=== PATIENT | male | born 1955 | race Caucasian/White ===

== ENCOUNTER 2018-12-13 15:15 | Outpatient (REF) | payer MEDICARE, BC, SELFPAY ==
[2018-12-13 21:54] LABS: Anion Gap 10.7 mmol/L (3-11); BUN 15 mg/dL (7-18); CO2 27.3 mmol/L (21.0-32.0); CREATININE 0.81 mg/dL (0.70-1.30); Calcium 9.1 mg/dL (8.5-10.1); Chloride 103 mmol/L (98-107); Glucose 128 mg/dL (70-100); Sodium 141 mmol/L (136-145)
== END 2018-12-13 15:35 ==
LOC: NCHCN 15:15
PROVIDERS: PCP Internal Medicine; Visit Provider Internal Medicine
DX: E11.9 Type 2 diabetes mellitus without complications (principal); E66.01 Morbid (severe) obesity due to excess calories
CPT/HCPCS: 80048

== ENCOUNTER 2019-03-15 10:15 | Outpatient (REF) | payer MEDICARE, BC, SELFPAY ==
[2019-03-15 22:35] LABS: COMMENT (LAB VIEW ONLY) 174.16 mg/dL; Microalb ug/mg Crea 4.3 ug/mg Cr
== END 2019-03-15 10:35 ==
LOC: NCHCN 10:15
PROVIDERS: PCP Internal Medicine; Visit Provider Internal Medicine
DX: E11.9 Type 2 diabetes mellitus without complications (principal)
CPT/HCPCS: 82043; 82570

== ENCOUNTER 2019-04-12 10:41 | Outpatient (REF) | payer MEDICARE, BC, SELFPAY ==
--- NOTE | 2019-04-12 09:20 | SKI_PTH ---
PATIENT: Clemente Everett LOC: [facility] U#:[id number] AGE/SX: 64/M ROOM: RE04/12/[address]: Erin Valladares : 1955 BED: DIS: 04/12/2019 SPEC #: [id number] RECD: 04/13/19 12:39 STATUS: FADIA REQ #: [id number] BLAYNE: 04/12/19 09:[address]: Erin Valladares DEPT: Surgical Specimen RECD BY: Radha Petersen ENTERED: 04/13/19 12:40 SP TYPE: MARCELINA OTHR DR: Zeus Mederos Tissues: 1 - SKIN BIOPSY(SHAVE/PUNCH) Procedures: SKIN LEVEL 4 Comments: [id number]
== END 2019-04-12 11:01 ==
LOC: NCHCN 10:41
PROVIDERS: PCP Internal Medicine; Visit Provider Internal Medicine
DX: D04.61 Carcinoma in situ of skin of right upper limb, including shoulder (principal)
CPT/HCPCS: 88305

== ENCOUNTER 2019-12-03 10:01 | Outpatient (REF) | payer MEDICARE, BC, SELFPAY ==
[2019-12-03 21:27] LABS: ALT 54 U/L (16-63); AST 32 U/L (15-37); Albumin 4.5 g/dL (3.4-5.0); Alkaline Phosphatase 73 U/L (46-116); Anion Gap 11.9 mmol/L (3-11); BUN 20 mg/dL (7-18); Bilirubin, Total 0.7 mg/dL (0.2-1.0); CO2 26.1 mmol/L (21.0-32.0); CREATININE 0.87 mg/dL (0.70-1.30); Calcium 8.7 mg/dL (8.5-10.1); Chloride 101 mmol/L (98-107); Glucose 107 mg/dL (74-106); Potassium 4.5 mmol/L (3.5-5.1); Sodium 139 mmol/L (136-145); Total Protein 7.8 g/dL (6.4-8.2)
[2019-12-03 21:40] LABS: Hemoglobin A1C 7.1 % (3.8-5.6)
[2019-12-03 21:41] LABS: Calculated LDL 93 mg/dL (<100); Cholesterol 176 mg/dL (<200); HDL Cholesterol 54 mg/dL (40-60); Triglyceride 147 mg/dL (<150)
[2019-12-05 08:46] LABS: PSA, Screening 0.3 ng/mL (0.0-4.5)
== END 2019-12-03 10:21 ==
LOC: NCHCN 10:01
PROVIDERS: PCP Internal Medicine; Visit Provider Internal Medicine
DX: E11.9 Type 2 diabetes mellitus without complications (principal); I10 Essential (primary) hypertension; M47.816 Spondylosis without myelopathy or radiculopathy, lumbar region; Z12.5 Encounter for screening for malignant neoplasm of prostate
CPT/HCPCS: 80053; 80061; 84153; 83036

== ENCOUNTER 2020-06-23 14:33 | Outpatient (REF) | payer MEDICARE, BC, SELFPAY ==
[2020-06-23 23:39] LABS: COMMENT (LAB VIEW ONLY) 34.04 mg/dL
== END 2020-06-23 14:53 ==
LOC: NCHCN 14:33
PROVIDERS: PCP Internal Medicine; Visit Provider Internal Medicine
DX: E11.9 Type 2 diabetes mellitus without complications (principal)
CPT/HCPCS: 82043; 82570

== ENCOUNTER 2020-12-22 09:49 | Outpatient (REF) | payer MEDICARE, BC, SELFPAY ==
[2020-12-22 13:30] LABS: HCT 41.6 % (40.0-50.0); HGB 14.6 g/dL (13.5-17.5); MCH 32.8 pg (27.0-33.0); MCHC 35.1 % (32.0-36.0); MCV 93.5 fL (80-95); MPV 9.6 fL (8.0-11.0); Platelet Count 187 10^3/uL (130-400); RBC 4.45 10^6/uL (4.36-5.78); RDW 12.9 % (11.8-14.1); RDW-SD 44.2 fL; WBC 3.95 10^3/uL (4.4-10.8)
[2020-12-22 14:20] LABS: ALT 71 U/L (16-63); AST 41 U/L (15-37); Albumin 4.5 g/dL (3.4-5.0); Alkaline Phosphatase 75 U/L (46-116); Anion Gap 10.7 mmol/L (3-11); BUN 13 mg/dL (7-18); Bilirubin, Total 0.5 mg/dL (0.2-1.0); CO2 25.3 mmol/L (21.0-32.0); CREATININE 0.8 mg/dL (0.70-1.30); Calcium 8.7 mg/dL (8.5-10.1); Calculated LDL 70 mg/dL (<100); Chloride 104 mmol/L (98-107); Cholesterol 147 mg/dL (<200); Glucose 129 mg/dL (74-106); HDL Cholesterol 48 mg/dL (40-60); Potassium 4.3 mmol/L (3.5-5.1); Sodium 140 mmol/L (136-145); Total Protein 7.7 g/dL (6.4-8.2); Triglyceride 146 mg/dL (<150)
== END 2020-12-22 09:50 | disposition home or self-care (01) ==
LOC: NCHCN 09:49
PROVIDERS: PCP Internal Medicine; Visit Provider Internal Medicine
DX: I10 Essential (primary) hypertension (principal); E11.9 Type 2 diabetes mellitus without complications; E78.5 Hyperlipidemia, unspecified; G47.33 Obstructive sleep apnea (adult) (pediatric)
CPT/HCPCS: 80053; 80061; 85027

== ENCOUNTER 2021-06-23 09:36 | Outpatient (REF) | payer MEDICARE, BC, SELFPAY ==
[2021-06-23 16:24] LABS: Hemoglobin A1C 6.6 % (<5.7)
[2021-06-23 16:28] LABS: ALT 67 U/L (16-63); AST 41 U/L (15-37); Albumin 4.3 g/dL (3.4-5.0); Alkaline Phosphatase 67 U/L (46-116); Anion Gap 9.5 mmol/L (3-11); BUN 13 mg/dL (7-18); Bilirubin, Total 0.6 mg/dL (0.2-1.0); CO2 26.5 mmol/L (21.0-32.0); CREATININE 0.9 mg/dL (0.70-1.30); Calcium 9.4 mg/dL (8.5-10.1); Chloride 104 mmol/L (98-107); Glucose 120 mg/dL (74-106); Potassium 4.6 mmol/L (3.5-5.1); Sodium 140 mmol/L (136-145); Total Protein 7.5 g/dL (6.4-8.2)
[2021-06-23 17:10] LABS: COMMENT (LAB VIEW ONLY) 102.36 mg/dL; Microalb ug/mg Crea 8.5 ug/mg Cr
== END 2021-06-23 09:37 | disposition home or self-care (01) ==
LOC: NCHCN 09:36
PROVIDERS: PCP Internal Medicine; Visit Provider Internal Medicine
DX: E11.9 Type 2 diabetes mellitus without complications (principal); K76.0 Fatty (change of) liver, not elsewhere classified
CPT/HCPCS: 80053; 82043; 82570; 83036

== ENCOUNTER 2022-01-14 16:55 | Outpatient (REF) | payer MEDICARE, BC, SELFPAY ==
[2022-01-14 14:44] LABS: Hemoglobin A1C 6.9 % (<5.7)
[2022-01-14 14:48] LABS: ALT 63 U/L (16-63); AST 39 U/L (15-37); Albumin 4.2 g/dL (3.4-5.0); Alkaline Phosphatase 69 U/L (46-116); Anion Gap 8.9 mmol/L (3-11); BUN 11 mg/dL (7-18); Bilirubin, Total 0.6 mg/dL (0.2-1.0); CO2 26.1 mmol/L (21.0-32.0); CREATININE 0.8 mg/dL (0.70-1.30); Calcium 8.4 mg/dL (8.5-10.1); Chloride 103 mmol/L (98-107); Glucose 240 mg/dL (74-106); Potassium 4.4 mmol/L (3.5-5.1); Sodium 138 mmol/L (136-145); Total Protein 7.2 g/dL (6.4-8.2)
[2022-01-14 16:06] LABS: COMMENT (LAB VIEW ONLY) 36.42 mg/dL; Microalb ug/mg Crea 10.4 ug/mg Cr
[2022-01-15 18:57] LABS: PSA, Screening 0.5 ng/mL (<=4.5)
== END 2022-01-14 16:56 | disposition home or self-care (01) ==
LOC: NCHCN 16:55
PROVIDERS: PCP Internal Medicine; Visit Provider Internal Medicine
DX: E11.9 Type 2 diabetes mellitus without complications (principal); K76.0 Fatty (change of) liver, not elsewhere classified; Z12.5 Encounter for screening for malignant neoplasm of prostate
CPT/HCPCS: 80053; 82175; 84153; 82043; 82570; 83036

== ENCOUNTER 2022-07-02 14:12 | Outpatient (REF) | payer MEDICARE, BC, SELFPAY | END 2022-07-02 14:13 | disposition home or self-care (01) | LOC: NCHCN 14:12 | PROVIDERS: PCP Internal Medicine; Visit Provider Family Medicine | DX: R05.8 Other specified cough (principal); J06.9 Acute upper respiratory infection, unspecified | CPT/HCPCS: 87070; 87205 ==

== ENCOUNTER 2023-03-21 13:24 | Outpatient (REF) | payer MEDICARE, BC, SELFPAY ==
[2023-03-21 16:43] LABS: COMMENT (LAB VIEW ONLY) 67.14 mg/dL; Microalb ug/mg Crea 4.9 ug/mg Cr
== END 2023-03-21 13:25 | disposition home or self-care (01) ==
LOC: NCHCN 13:24
PROVIDERS: PCP Internal Medicine; Visit Provider Internal Medicine
DX: Z86.39 Personal history of other endocrine, nutritional and metabolic disease (principal)
CPT/HCPCS: 82043; 82570

== ENCOUNTER 2023-07-19 21:27 | Outpatient (REF) | payer MEDICARE, BC, SELFPAY | END 2023-07-19 21:28 | disposition home or self-care (01) | LOC: NCHCN 21:27 | PROVIDERS: PCP Internal Medicine; Visit Provider Physician Assistant | DX: R31.0 Gross hematuria (principal) | CPT/HCPCS: 87086 ==

== ENCOUNTER 2023-10-28 15:09 | Outpatient (REF) | payer MEDICARE, BC, SELFPAY ==
[2023-10-28 14:59] LABS: TSH 1.32 uIU/mL (0.36-3.74); Vitamin B12 1086 pg/mL (193-986)
[2023-10-28 15:10] LABS: Folate > 20.0 ng/mL (8.6-20.0)
[2023-10-28 15:26] LABS: Hemoglobin A1C 6.3 % (<5.7)
== END 2023-10-28 15:10 | disposition home or self-care (01) ==
LOC: NCHCN 15:09
PROVIDERS: PCP Internal Medicine; Visit Provider Internal Medicine
DX: E11.9 Type 2 diabetes mellitus without complications (principal)
CPT/HCPCS: 82607; 82746; 83036; 84443

== ENCOUNTER 2024-05-31 15:52 | Outpatient (REF) | payer MEDICARE, BC, SELFPAY ==
[2024-05-31 21:40] LABS: COMMENT (LAB VIEW ONLY) 61.42 mg/dL; Microalb ug/mg Crea 6.8 ug/mg Cr
== END 2024-05-31 15:53 | disposition home or self-care (01) ==
LOC: NCHCN 15:52
PROVIDERS: PCP Internal Medicine; Visit Provider Internal Medicine
DX: E11.9 Type 2 diabetes mellitus without complications (principal)
CPT/HCPCS: 82043; 82570

== ENCOUNTER 2024-12-26 16:05 | Outpatient (REF) | payer MEDICARE, BC, SELFPAY ==
[2024-12-26 21:32] LABS: HCT 42.1 % (40.0-50.0); HGB 14.5 g/dL (13.5-17.5); MCH 33.1 pg (27.0-33.0); MCHC 34.4 % (32.0-36.0); MCV 96 fL (80-95); MPV 10.2 fL (8.0-11.0); Platelet Count 172 10^3/uL (130-400); RBC 4.38 10^6/uL (4.36-5.78); RDW 13.1 % (11.8-14.1); RDW-SD 46.3 fL; WBC 4.15 10^3/uL (4.4-10.8)
[2024-12-26 21:45] LABS: ALT 43 U/L (16-63); AST 29 U/L (15-37); Albumin 4.4 g/dL (3.4-5.0); Alkaline Phosphatase 65 U/L (46-116); Anion Gap 10.3 mmol/L (3-11); BUN 11 mg/dL (7-18); Bilirubin, Total 0.7 mg/dL (0.2-1.0); CO2 26.7 mmol/L (21.0-32.0); CREATININE 0.8 mg/dL (0.70-1.30); Calcium 9.5 mg/dL (8.5-10.1); Chloride 106 mmol/L (98-107); Glucose 117 mg/dL (74-106); Potassium 4.3 mmol/L (3.5-5.1); Sodium 143 mmol/L (136-145); Total Protein 7.8 g/dL (6.4-8.2)
== END 2024-12-26 16:06 | disposition home or self-care (01) ==
LOC: NCHCN 16:05
PROVIDERS: PCP Internal Medicine; Visit Provider Internal Medicine
DX: Z01.818 Encounter for other preprocedural examination (principal)
CPT/HCPCS: 80053; 85027

== ENCOUNTER 2025-07-01 15:02 | Outpatient (REF) | payer MEDICARE, BC, SELFPAY ==
[2025-07-01 17:31] LABS: COMMENT (LAB VIEW ONLY) 50.43 mg/dL; Microalb ug/mg Crea 7.7 ug/mg Cr
== END 2025-07-01 15:03 | disposition home or self-care (01) ==
LOC: NCHCN 15:02
PROVIDERS: PCP Internal Medicine; Visit Provider Internal Medicine
DX: E11.9 Type 2 diabetes mellitus without complications (principal)
CPT/HCPCS: 82043; 82570